=== PATIENT | male | born 1980 | race Caucasian/White ===

== ENCOUNTER 2016-07-23 13:12 | Emergency (ER) | payer MEDICARE ==
[~2016-07-23] VITALS: Ht 172.7 cm; Wt 106.8 kg
[2016-07-23 13:14] VITALS: BP 120/83; PULSE 93; RESP 14; TEMP 97.6; O2SAT 99
[2016-07-23] MEDS ORDERED: PALIPERIDONE PALMITATE 156 MG/ML SYRINGE IM ONE (14:30)
--- NOTE | 2016-07-23 14:42 | PD ---
HPI Chief Complaint: Psychiatric Symptoms Time Seen by Provider: 14:35 Travel History International Travel<30 days: No Contact w/Intl Traveler<30days: No Traveled to known affect area: No History of Present Illness HPI 35-year-old male presents to the emergency room requesting Invega injection. Patient recently moved down here and has been unable to establish care with a psychiatrist in the area. His sister called [facility] before coming to the hospital and they recommended she come to the emergency room to get the injection as they had no openings today. States he receives these injections once a week to prevent schizophrenia and psychosis. Patient reports history of atypical schizophrenia. States he has no symptoms currently but is due for his medication and worried that if he doesn't get it it'll cause him to become psychotic. Denies suicidal or homicidal ideation. PFSH Social History Tobacco Use: No Allergies-Medications (Allergen,Severity, Reaction): Coded Allergies: No Known Allergies (Unverified , 07/23/16) Review of Systems Except as stated in HPI: all other systems reviewed are Neg Physical Exam Narrative GENERAL: Well-nourished, well-developed male in no acute distress. Afebrile. Ambulatory. SKIN: Warm and dry. HEAD: Normocephalic. EYES: No scleral icterus. No injection or drainage. NECK: Supple, trachea midline. No JVD or lymphadenopathy. PSYCHIATRIC: No delusional thought processes. No hallucinations. Data Data Last Documented VS Vital Signs Date Time Temp Pulse Resp B/P Pulse Ox O2 Delivery O2 Flow Rate FiO2 07/23/16 13:14 97.6 93 14 120/83 99 Room Air Orders Paliperidone Inj (Invega Sustenna Inj) (07/23/16 14:30) [facility] Medical Decision Making Medical Screen Exam Complete: Yes Emergency Medical Condition: Yes Medical Record Reviewed: Yes Differential Diagnosis Schizophrenia versus depression versus anxiety Narrative Course 35-year-old male with a history of atypical schizophrenia presents to the emergency room requesting Invega injection to prevent acute psychosis. Patient recently moved down here and is due for his monthly injection. He does not have a psychiatrist in the area to refill this medication. He is asymptomatic at this time. Denies suicidal or homicidal ideation. He was given a one-time dose but [facility] additional/further treatment. Patient was given multiple resources for follow-up. He understands and agrees to this plan. Diagnosis Primary Impression: Atypical schizophrenia Referrals: Psychiatrist Patient Instructions: General Instructions, Schizophrenia (ED) Additional Instructions: Rest and drink plenty of fluids. Follow-up with a psychiatrist or [facility] for long-term management. Return to the emergency room for worsening symptoms. Disposition: 01 DISCHARGE HOME Condition: Stable Liz Jaramillo Jul 23, 2016 14:42
== END 2016-07-23 15:54 | disposition home or self-care (01) ==
LOC: NEPB 13:12
DX: F20.3 Undifferentiated schizophrenia (principal); Z76.0 Encounter for issue of repeat prescription
CPT/HCPCS: 96372; 99282; J2426